=== PATIENT | male | born 1955 | race Caucasian/White ===

== ENCOUNTER 2020-08-07 03:02 | Outpatient (RCR) | payer MEDICARE, OTHER, SELFPAY ==
[2020-07-24] MEDS: Normal Saline Flush 10 ML SYR IVP (07:53)
[2020-07-24 08:11] LABS: Abs Immature Grans 0.01 10^3/uL (0.0-0.06); Absolute Basophil Count 0.07 10^3/uL (0.0-0.2); Absolute Eosinophil Count 0.19 10^3/uL (0.0-0.7); Absolute Lymphocyte Count 0.97 10^3/uL (1.2-3.4); Absolute Monocyte Count 0.37 10^3/uL (0.1-0.8); Absolute Neutrophil Count 2.86 10^3/uL (1.2-6.7); Basophils % 1.6; Eosinophils % 4.3; HCT 43.7 % (40.0-50.0); HGB 14.3 g/dL (13.5-17.5); Immature Grans % 0.2; Lymphocytes % 21.7; MCH 30.8 pg (27.0-33.0); MCHC 32.7 % (32.0-36.0); MCV 94.2 fL (80-95); MPV 9.3 fL (8.0-11.0); Monocytes % 8.3; Neutrophils % 63.9; Nucleated RBC 0 %; Platelet Count 181 10^3/uL (130-400); RBC 4.64 10^6/uL (4.36-5.78); RDW 12.2 % (11.8-14.1); RDW-SD 42.6 fL; WBC 4.47 10^3/uL (4.4-10.8)
[2020-07-24 08:27] LABS: ALT 17 U/L (16-63); AST 15 U/L (15-37); Albumin 3.7 g/dL (3.4-5.0); Alkaline Phosphatase 66 U/L (46-116); Anion Gap 7.2 mmol/L (3-11); BUN 10 mg/dL (7-18); Bilirubin, Total 0.3 mg/dL (0.2-1.0); CO2 30.8 mmol/L (21.0-32.0); CREATININE 1.4 mg/dL (0.70-1.30); Calcium 8.7 mg/dL (8.5-10.1); Chloride 102 mmol/L (98-107); Glucose 93 mg/dL (74-106); Potassium 3.7 mmol/L (3.5-5.1); Sodium 140 mmol/L (136-145); Total Protein 7.2 g/dL (6.4-8.2)
[2020-07-31] MEDS: Normal Saline Flush 10 ML SYR IVP (09:58)
[2020-07-31 10:01] LABS: Abs Immature Grans 0.03 10^3/uL (0.0-0.06); Absolute Basophil Count 0.07 10^3/uL (0.0-0.2); Absolute Eosinophil Count 0.13 10^3/uL (0.0-0.7); Absolute Lymphocyte Count 0.84 10^3/uL (1.2-3.4); Absolute Monocyte Count 0.41 10^3/uL (0.1-0.8); Absolute Neutrophil Count 4.19 10^3/uL (1.2-6.7); Basophils % 1.2; Eosinophils % 2.3; HGB 13.5 g/dL (13.5-17.5); Immature Grans % 0.5; Lymphocytes % 14.8; MCHC 32.9 % (32.0-36.0); MCV 94.3 fL (80-95); MPV 9.5 fL (8.0-11.0); Monocytes % 7.2; Nucleated RBC 0 %; Platelet Count 147 10^3/uL (130-400); RBC 4.35 10^6/uL (4.36-5.78); RDW 12.1 % (11.8-14.1); RDW-SD 42.3 fL; WBC 5.67 10^3/uL (4.4-10.8)
[2020-07-31 10:27] LABS: ALT 64 U/L (16-63); AST 28 U/L (15-37); Albumin 3.4 g/dL (3.4-5.0); Alkaline Phosphatase 58 U/L (46-116); Anion Gap 3.6 mmol/L (3-11); BUN 17 mg/dL (7-18); Bilirubin, Total 0.4 mg/dL (0.2-1.0); CO2 32.4 mmol/L (21.0-32.0); CREATININE 1.1 mg/dL (0.70-1.30); Calcium 8.5 mg/dL (8.5-10.1); Chloride 102 mmol/L (98-107); Glucose 133 mg/dL (74-106); Magnesium 1.8 mg/dL (1.8-2.4); Potassium 3.6 mmol/L (3.5-5.1); Sodium 138 mmol/L (136-145); Total Protein 6.9 g/dL (6.4-8.2)
[2020-08-07] MEDS: Normal Saline Flush 10 ML SYR IVP (08:56)
[2020-08-07 08:59] LABS: Abs Immature Grans 0.02 10^3/uL (0.0-0.06); Absolute Basophil Count 0.05 10^3/uL (0.0-0.2); Absolute Eosinophil Count 0.08 10^3/uL (0.0-0.7); Absolute Lymphocyte Count 0.57 10^3/uL (1.2-3.4); Absolute Monocyte Count 0.44 10^3/uL (0.1-0.8); Absolute Neutrophil Count 5.23 10^3/uL (1.2-6.7); Basophils % 0.8; Eosinophils % 1.3; HCT 39.6 % (40.0-50.0); HGB 13.2 g/dL (13.5-17.5); Immature Grans % 0.3; Lymphocytes % 8.9; MCHC 33.3 % (32.0-36.0); MPV 9.6 fL (8.0-11.0); Monocytes % 6.9; Neutrophils % 81.8; Nucleated RBC 0 %; Platelet Count 138 10^3/uL (130-400); RBC 4.26 10^6/uL (4.36-5.78); RDW 12.1 % (11.8-14.1); RDW-SD 41.5 fL; WBC 6.39 10^3/uL (4.4-10.8)
[2020-08-07 09:01] LABS: ALT 38 U/L (16-63); AST 16 U/L (15-37); Albumin 3.5 g/dL (3.4-5.0); Alkaline Phosphatase 61 U/L (46-116); Anion Gap 2.5 mmol/L (3-11); BUN 15 mg/dL (7-18); Bilirubin, Total 0.5 mg/dL (0.2-1.0); CO2 32.5 mmol/L (21.0-32.0); CREATININE 1.2 mg/dL (0.70-1.30); Calcium 8.7 mg/dL (8.5-10.1); Chloride 100 mmol/L (98-107); Glucose 132 mg/dL (74-106); Magnesium 1.8 mg/dL (1.8-2.4); Potassium 3.8 mmol/L (3.5-5.1); Sodium 135 mmol/L (136-145)
== END 2020-08-09 23:59 | disposition home or self-care (01) ==
LOC: INF 03:02
PROVIDERS: Visit Provider Internal Medicine Hematology & Oncology
DX: C02.9 Malignant neoplasm of tongue, unspecified (principal); Z45.2 Encounter for adjustment and management of vascular access device
CPT/HCPCS: 36415; 36591; 80053; 83735; 85025

== ENCOUNTER 2020-09-04 02:50 | Outpatient (RCR) | payer MEDICARE, OTHER, SELFPAY ==
[2020-08-14 08:46] LABS: Abs Immature Grans 0.01 10^3/uL (0.0-0.06); Absolute Basophil Count 0.04 10^3/uL (0.0-0.2); Absolute Eosinophil Count 0.08 10^3/uL (0.0-0.7); Absolute Lymphocyte Count 0.46 10^3/uL (1.2-3.4); Absolute Monocyte Count 0.47 10^3/uL (0.1-0.8); Absolute Neutrophil Count 5.37 10^3/uL (1.2-6.7); Basophils % 0.6; Eosinophils % 1.2; HGB 13.1 g/dL (13.5-17.5); Immature Grans % 0.2; Lymphocytes % 7.2; MCH 31.6 pg (27.0-33.0); MCHC 33.6 % (32.0-36.0); Monocytes % 7.3; Neutrophils % 83.5; Nucleated RBC 0 %; RBC 4.15 10^6/uL (4.36-5.78); RDW 12.4 % (11.8-14.1); RDW-SD 42.2 fL; WBC 6.43 10^3/uL (4.4-10.8)
[2020-08-14 08:56] LABS: ALT 142 U/L (16-63); AST 41 U/L (15-37); Albumin 3.7 g/dL (3.4-5.0); Alkaline Phosphatase 60 U/L (46-116); Anion Gap 6.9 mmol/L (3-11); BUN 14 mg/dL (7-18); Bilirubin, Total 0.7 mg/dL (0.2-1.0); CO2 30.1 mmol/L (21.0-32.0); CREATININE 1.1 mg/dL (0.70-1.30); Calcium 9.1 mg/dL (8.5-10.1); Chloride 99 mmol/L (98-107); Glucose 91 mg/dL (74-106); Magnesium 1.6 mg/dL (1.8-2.4); Potassium 4.4 mmol/L (3.5-5.1); Sodium 136 mmol/L (136-145); Total Protein 7.2 g/dL (6.4-8.2)
[2020-08-14 09:02] LABS: Diff Comment Diff Reviewed; Platelet Count 137 10^3/uL (130-400); RBC Morphology Normal
[2020-08-14] MEDS: Normal Saline Flush 10 ML SYR IVP (09:28)
[2020-08-21] MEDS: Normal Saline Flush 10 ML SYR IVP (09:38)
[2020-08-21 09:44] LABS: Abs Immature Grans 0.01 10^3/uL (0.0-0.06); Absolute Basophil Count 0.03 10^3/uL (0.0-0.2); Absolute Eosinophil Count 0.07 10^3/uL (0.0-0.7); Absolute Lymphocyte Count 0.39 10^3/uL (1.2-3.4); Absolute Monocyte Count 0.36 10^3/uL (0.1-0.8); Absolute Neutrophil Count 4.56 10^3/uL (1.2-6.7); Basophils % 0.6; Eosinophils % 1.3; HCT 36.2 % (40.0-50.0); HGB 11.9 g/dL (13.5-17.5); Immature Grans % 0.2; Lymphocytes % 7.2; MCH 31.2 pg (27.0-33.0); MCHC 32.9 % (32.0-36.0); MPV 10.1 fL (8.0-11.0); Monocytes % 6.6; Neutrophils % 84.1; Nucleated RBC 0 %; RBC 3.81 10^6/uL (4.36-5.78); RDW 12.4 % (11.8-14.1); RDW-SD 42.6 fL; WBC 5.42 10^3/uL (4.4-10.8)
[2020-08-21 09:54] LABS: Diff Comment Diff Reviewed; Platelet Count 99 10^3/uL (130-400); RBC Morphology Normal
[2020-08-21 09:55] LABS: ALT 157 U/L (16-63); AST 40 U/L (15-37); Albumin 3.5 g/dL (3.4-5.0); Alkaline Phosphatase 56 U/L (46-116); Anion Gap 5.1 mmol/L (3-11); BUN 27 mg/dL (7-18); Bilirubin, Total 0.4 mg/dL (0.2-1.0); CO2 31.9 mmol/L (21.0-32.0); CREATININE 1.2 mg/dL (0.70-1.30); Calcium 9.1 mg/dL (8.5-10.1); Chloride 102 mmol/L (98-107); Glucose 131 mg/dL (74-106); Magnesium 1.8 mg/dL (1.8-2.4); Potassium 4.9 mmol/L (3.5-5.1); Sodium 139 mmol/L (136-145); Total Protein 7.1 g/dL (6.4-8.2)
[2020-08-28 08:25] LABS: Abs Immature Grans 0.01 10^3/uL (0.0-0.06); Absolute Basophil Count 0.02 10^3/uL (0.0-0.2); Absolute Eosinophil Count 0.04 10^3/uL (0.0-0.7); Absolute Lymphocyte Count 0.34 10^3/uL (1.2-3.4); Absolute Monocyte Count 0.33 10^3/uL (0.1-0.8); Basophils % 0.7; Eosinophils % 1.3; HCT 33.8 % (40.0-50.0); HGB 11.4 g/dL (13.5-17.5); Immature Grans % 0.3; Lymphocytes % 11.2; MCH 31.8 pg (27.0-33.0); MCHC 33.7 % (32.0-36.0); MCV 94.4 fL (80-95); MPV 9.8 fL (8.0-11.0); Monocytes % 10.9; Neutrophils % 75.6; Nucleated RBC 0 %; Platelet Count 115 10^3/uL (130-400); RBC 3.58 10^6/uL (4.36-5.78); RDW 12.4 % (11.8-14.1); RDW-SD 42.5 fL; WBC 3.04 10^3/uL (4.4-10.8)
[2020-08-28] MEDS: Normal Saline Flush 10 ML SYR IVP (08:39)
[2020-08-28 08:47] LABS: ALT 196 U/L (16-63); AST 61 U/L (15-37); Albumin 3.5 g/dL (3.4-5.0); Alkaline Phosphatase 57 U/L (46-116); Anion Gap 7.7 mmol/L (3-11); BUN 23 mg/dL (7-18); Bilirubin, Total 0.6 mg/dL (0.2-1.0); CO2 28.3 mmol/L (21.0-32.0); CREATININE 1.1 mg/dL (0.70-1.30); Chloride 104 mmol/L (98-107); Glucose 87 mg/dL (74-106); Magnesium 1.5 mg/dL (1.8-2.4); Potassium 4.8 mmol/L (3.5-5.1); Sodium 140 mmol/L (136-145)
[2020-09-04] MEDS: Normal Saline Flush 10 ML SYR IVP (08:56)
[2020-09-04 09:05] LABS: Abs Immature Grans 0.04 10^3/uL (0.0-0.06); Absolute Basophil Count 0.03 10^3/uL (0.0-0.2); Absolute Eosinophil Count 0.03 10^3/uL (0.0-0.7); Absolute Lymphocyte Count 0.34 10^3/uL (1.2-3.4); Absolute Monocyte Count 0.54 10^3/uL (0.1-0.8); Absolute Neutrophil Count 2.26 10^3/uL (1.2-6.7); Basophils % 0.9; Eosinophils % 0.9; Immature Grans % 1.2; Lymphocytes % 10.5; MCH 31.6 pg (27.0-33.0); MCHC 33.3 % (32.0-36.0); MCV 94.8 fL (80-95); MPV 10.1 fL (8.0-11.0); Monocytes % 16.7; Neutrophils % 69.8; Nucleated RBC 0 %; Platelet Count 159 10^3/uL (130-400); RBC 3.48 10^6/uL (4.36-5.78); RDW-SD 43.2 fL; WBC 3.24 10^3/uL (4.4-10.8)
[2020-09-04 09:20] LABS: ALT 200 U/L (16-63); AST 50 U/L (15-37); Albumin 3.5 g/dL (3.4-5.0); Alkaline Phosphatase 57 U/L (46-116); Anion Gap 7.3 mmol/L (3-11); BUN 22 mg/dL (7-18); Bilirubin, Total 0.4 mg/dL (0.2-1.0); CO2 29.7 mmol/L (21.0-32.0); Calcium 9.1 mg/dL (8.5-10.1); Chloride 106 mmol/L (98-107); Glucose 92 mg/dL (74-106); Magnesium 1.5 mg/dL (1.8-2.4); Potassium 4.8 mmol/L (3.5-5.1); Sodium 143 mmol/L (136-145); Total Protein 7.1 g/dL (6.4-8.2)
== END 2020-09-08 23:59 | disposition home or self-care (01) ==
LOC: INF 02:50
PROVIDERS: Visit Provider Internal Medicine Hematology & Oncology
DX: C02.9 Malignant neoplasm of tongue, unspecified (principal); Z45.2 Encounter for adjustment and management of vascular access device
CPT/HCPCS: 36591; 80053; 83735; 85025

== ENCOUNTER 2020-09-25 02:41 | Outpatient (RCR) | payer MEDICARE, OTHER, SELFPAY ==
[2020-09-25] MEDS: Normal Saline Flush 10 ML SYR IVP (10:41)
[2020-09-25 10:48] LABS: Abs Immature Grans 0.04 10^3/uL (0.0-0.06); Absolute Basophil Count 0.02 10^3/uL (0.0-0.2); Absolute Eosinophil Count 0.07 10^3/uL (0.0-0.7); Absolute Lymphocyte Count 0.39 10^3/uL (1.2-3.4); Absolute Monocyte Count 0.69 10^3/uL (0.1-0.8); Absolute Neutrophil Count 2.85 10^3/uL (1.2-6.7); Basophils % 0.5; Eosinophils % 1.7; HGB 10.2 g/dL (13.5-17.5); Lymphocytes % 9.6; MCHC 32.9 % (32.0-36.0); MCV 97.2 fL (80-95); MPV 10.2 fL (8.0-11.0); Neutrophils % 70.2; Nucleated RBC 0 %; Platelet Count 142 10^3/uL (130-400); RBC 3.19 10^6/uL (4.36-5.78); RDW 15.8 % (11.8-14.1); WBC 4.06 10^3/uL (4.4-10.8)
[2020-09-25 11:08] LABS: ALT 74 U/L (16-63); AST 33 U/L (15-37); Albumin 3.5 g/dL (3.4-5.0); Alkaline Phosphatase 60 U/L (46-116); Anion Gap 4.7 mmol/L (3-11); BUN 21 mg/dL (7-18); Bilirubin, Total 0.4 mg/dL (0.2-1.0); CO2 31.3 mmol/L (21.0-32.0); CREATININE 1.1 mg/dL (0.70-1.30); Calcium 9.2 mg/dL (8.5-10.1); Chloride 105 mmol/L (98-107); Glucose 101 mg/dL (74-106); Magnesium 1.7 mg/dL (1.8-2.4); Potassium 4.2 mmol/L (3.5-5.1); Sodium 141 mmol/L (136-145); Total Protein 6.8 g/dL (6.4-8.2)
== END 2020-10-09 23:59 | disposition home or self-care (01) ==
LOC: INF 02:41
PROVIDERS: Visit Provider Internal Medicine Hematology & Oncology
DX: C01 Malignant neoplasm of base of tongue (principal); E86.0 Dehydration; E83.42 Hypomagnesemia; Z45.2 Encounter for adjustment and management of vascular access device
CPT/HCPCS: 36591; 80053; 83735; 85025

== ENCOUNTER 2020-12-11 07:37 | Outpatient (CLI) | payer MEDICARE, OTHER, SELFPAY | END 2020-12-11 07:38 | disposition home or self-care (01) | LOC: LBO 08:41 | PROVIDERS: Visit Provider Internal Medicine Hematology & Oncology | DX: C01 Malignant neoplasm of base of tongue (principal); Z79.899 Other long term (current) drug therapy | CPT/HCPCS: 80053; 83735; 84443; 85025 ==

== ENCOUNTER 2020-12-11 11:54 | Outpatient (RCR) | payer MEDICARE, OTHER, SELFPAY ==
[2020-12-11] MEDS: Heparin 500 UNITS/5 ML SYRINGE (12:12)
[2020-12-11] MEDS: Normal Saline Flush 10 ML SYR IVP (12:12)
[2020-12-11 12:28] LABS: Abs Immature Grans 0.01 10^3/uL (0.0-0.06); Absolute Basophil Count 0.04 10^3/uL (0.0-0.2); Absolute Eosinophil Count 0.15 10^3/uL (0.0-0.7); Absolute Lymphocyte Count 0.64 10^3/uL (1.2-3.4); Absolute Monocyte Count 0.36 10^3/uL (0.1-0.8); Basophils % 0.9; Eosinophils % 3.4; HGB 11.3 g/dL (13.5-17.5); Immature Grans % 0.2; Lymphocytes % 14.5; MCH 33.6 pg (27.0-33.0); MCHC 33.2 % (32.0-36.0); MCV 101.2 fL (80-95); MPV 9.9 fL (8.0-11.0); Monocytes % 8.2; Neutrophils % 72.8; Nucleated RBC 0 %; Platelet Count 137 10^3/uL (130-400); RBC 3.36 10^6/uL (4.36-5.78); RDW 11.7 % (11.8-14.1); RDW-SD 43.4 fL
[2020-12-11 13:10] LABS: ALT 25 U/L (16-63); AST 19 U/L (15-37); Albumin 3.5 g/dL (3.4-5.0); Alkaline Phosphatase 56 U/L (46-116); Anion Gap 6.9 mmol/L (3-11); BUN 10 mg/dL (7-18); Bilirubin, Total 0.4 mg/dL (0.2-1.0); CO2 30.1 mmol/L (21.0-32.0); CREATININE 1.1 mg/dL (0.70-1.30); Chloride 107 mmol/L (98-107); Glucose 101 mg/dL (74-106); Magnesium 1.7 mg/dL (1.8-2.4); Potassium 3.7 mmol/L (3.5-5.1); Sodium 144 mmol/L (136-145); TSH 1.16 uIU/mL (0.36-3.74); Total Protein 6.9 g/dL (6.4-8.2)
== END 2021-01-09 23:59 | disposition home or self-care (01) ==
LOC: INF 11:54
PROVIDERS: Visit Provider Internal Medicine Hematology & Oncology
DX: C01 Malignant neoplasm of base of tongue (principal); Z79.899 Other long term (current) drug therapy; Z45.2 Encounter for adjustment and management of vascular access device
CPT/HCPCS: 36591; 80053; 83735; 84443; 85025

== ENCOUNTER 2021-01-18 10:00 | Outpatient (CLI) | payer MEDICARE, OTHER, SELFPAY ==
[2021-01-18 14:20] LABS: Abs Immature Grans 0.01 10^3/uL (0.0-0.06); Absolute Basophil Count 0.05 10^3/uL (0.0-0.2); Absolute Eosinophil Count 0.15 10^3/uL (0.0-0.7); Absolute Lymphocyte Count 0.68 10^3/uL (1.2-3.4); Absolute Monocyte Count 0.41 10^3/uL (0.1-0.8); Absolute Neutrophil Count 5.12 10^3/uL (1.2-6.7); Basophils % 0.8; Eosinophils % 2.3; HCT 38.9 % (40.0-50.0); HGB 12.8 g/dL (13.5-17.5); Immature Grans % 0.2; Lymphocytes % 10.6; MCH 31.8 pg (27.0-33.0); MCHC 32.9 % (32.0-36.0); MCV 96.8 fL (80-95); MPV 9.8 fL (8.0-11.0); Monocytes % 6.4; Neutrophils % 79.7; Nucleated RBC 0 %; Platelet Count 142 10^3/uL (130-400); RBC 4.02 10^6/uL (4.36-5.78); RDW 11.9 % (11.8-14.1); RDW-SD 42.3 fL; WBC 6.42 10^3/uL (4.4-10.8)
[2021-01-18 14:26] LABS: Magnesium 1.8 mg/dL (1.8-2.4)
[2021-01-18 14:39] LABS: ALT 14 U/L (16-63); AST 14 U/L (15-37); Albumin 3.6 g/dL (3.4-5.0); Alkaline Phosphatase 66 U/L (46-116); BUN 11 mg/dL (7-18); Bilirubin, Total 0.5 mg/dL (0.2-1.0); CREATININE 1.4 mg/dL (0.70-1.30); Calcium 9.4 mg/dL (8.5-10.1); Chloride 105 mmol/L (98-107); Estimated GFR 50.55 (mL/min/1.73m2); Glucose 115 mg/dL (74-106); Sodium 144 mmol/L (136-145); TSH 2.15 uIU/mL (0.36-3.74); Total Protein 7.3 g/dL (6.4-8.2)
[2021-01-18 14:48] LABS: Potassium 2.9 mmol/L (3.5-5.1)
== END 2021-01-18 10:01 | disposition home or self-care (01) ==
LOC: LBO 10:01
PROVIDERS: PCP Family Medicine; Visit Provider Internal Medicine Hematology & Oncology
DX: C01 Malignant neoplasm of base of tongue (principal); Z79.899 Other long term (current) drug therapy
CPT/HCPCS: 36415; 80053; 83735; 84443; 85025

== ENCOUNTER 2021-01-18 15:50 | Emergency (ER) | payer MEDICARE, OTHER, SELFPAY ==
[2021-01-18] VITALS (25 sets, daily range): BP systolic 110–139; BP diastolic 66–83; PULSE 64–88; RESP 11–17; TEMP 36.3–36.6; O2SAT 94–99
--- NOTE | 2021-01-18 16:21 | ED.GENADUL_ITS ---
Discharge Plan Disposition Patient Disposition: HOME Condition: Stable Discharge Details Clinical Impression: Dehydration, Acute hypokalemia Primary Care Provider: Anupam Valdes ED Provider: Delia Maddox Home Meds and New Rx's Prescriptions: Continued clotrimazole 10 mg Acosta 10 mg PO DIRECTED RF: 0 ibuprofen 200 mg Tablet 400 mg PO PRN PRNRF: 0 omeprazole 40 mg Capsule,Delayed Release(Dr/Ec) 40 mg PO QAM RF: 0 therapeutic multivitamin Tablet 1 tab PO QAM RF: 0 prochlorperazine maleate 10 mg Tablet 10 mg PO PRN PRNRF: 0 amitriptyline 10 mg Tablet 10 mg PO HS RF: 0 tamsulosin 0.4 mg Capsule 0.4 mg PO HS RF: 0 duloxetine 20 mg Capsule,Delayed Release(Dr/Ec) 20 mg PO QAM RF: 0 levocetirizine 5 mg Tablet 5 mg PO QAM RF: 0 loperamide 2 mg Tablet 2 mg PO PRN PRNRF: 0 acetaminophen 325 mg Tablet 650 mg PO PRN PRNRF: 0 gabapentin 800 mg Tablet 800 mg PO BID RF: 0 fluticasone propion-salmeterol [Advair Diskus] 100-50 mcg/dose Blister With Device 1 inh INHALATION PRN PRNRF: 0 albuterol sulfate 90 mcg/actuation Aerosol Powdr Breath Activated 2 inh INHALATION PRN PRNRF: 0 albuterol sulfate [Proventil HFA] 90 mcg/actuation Hfa Aerosol Inhaler 2 inh INHALATION PRN PRNRF: 0 ibuprofen 200 mg Tablet 200 mg PO PRN PRNRF: 0 Discharge Instructions Instructions: Dehydration (ED), Hypokalemia (ED) Additional Instructions: Labs are WNL, potassium level was slightly low however kidney functions are within normal limits. Use Magic mouthwash as directed approximately 10 to 20 minutes before eating or drinking. Follow up with primary care provider in 3-5 days. Return to ED sooner if any worsening or concerns. Increase oral fluids. Please take Tylenol or Ibuprofen with food every 4-6 hours as needed for pain and swelling. Referrals: Anupam Valdes [Primary Care Provider] - Medical Decision Making 65 year old male presents to ED with chief complaint of weight loss, mouth pain and decreased PO intake x 1 month. 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 Patient had labs drawn today and was nted to have a potassium level of 2.9 and Elevated creatanine of 1.4 and GFR of 50. Patient is currently taking Nystatin for thrush type symptoms. Denies fever, chills, abdominal pain, N/V/D or problems urinating. labs re-drawn, UA, Saline ordered and Liquid potassium PO and IV 10 meq. At this time I suspect elevated creatanin due to dehydration. Will give magic mouthwash as well. CBC shows no evidence of leukocytosis hemoglobin hematocrit at baseline, sodium is 145 potassium 3.1, BUN 12 creatinine 1.2 GFR greater than 60 magnesium slightly low at 1.7. Discussed lab results with patient and family verbalized understanding. I did discuss home care and follow-up with PCP. At this time patient is stable to be discharged home. Patient has received approximately 500 cc normal saline. This text was generated using [employer] system, please disregard any oddities of phrase or misspellings. HPI General Date/Time Provider Initiated Documentation: 01/18/21 16:08 . Limitations to Documentation: no limitations . Information obtained by: patient, family and RN notes reviewed . HPI Narrative: 65 year old male presents to ED with chief complaint of weight loss, mouth pain and decreased PO intake x 1 month. 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 Patient had labs drawn today and was nted to have a potassium level of 2.9 and Elevated creatanine of 1.4 and GFR of 50. Patient is currently taking Nystatin for thrush type symptoms. Denies fever, chills, abdominal pain, N/V/D or problems urinating. Related Data Home Medications Medication Instructions Recorded Confirmed acetaminophen 650 mg PO PRN PRN 01/18/21 01/18/21 albuterol sulfate 2 inh INHALATION PRN PRN 01/18/21 01/18/21 albuterol sulfate [Proventil HFA] 2 inh INHALATION PRN PRN 01/18/21 01/18/21 amitriptyline 10 mg PO HS 01/18/21 01/18/21 clotrimazole 10 mg PO DIRECTED 01/18/21 01/18/21 duloxetine 20 mg PO QAM 01/18/21 01/18/21 fluticasone propion-salmeterol 1 inh INHALATION PRN PRN 01/18/21 01/18/21 [Advair Diskus] gabapentin 800 mg PO BID 01/18/21 01/18/21 ibuprofen 200 mg PO PRN PRN 01/18/21 01/18/21 ibuprofen 400 mg PO PRN PRN 01/18/21 01/18/21 levocetirizine 5 mg PO QAM 01/18/21 01/18/21 loperamide 2 mg PO PRN PRN 01/18/21 01/18/21 omeprazole 40 mg PO QAM 01/18/21 01/18/21 prochlorperazine maleate 10 mg PO PRN PRN 01/18/21 01/18/21 tamsulosin 0.4 mg PO HS 01/18/21 01/18/21 therapeutic multivitamin 1 tab PO QAM 01/18/21 01/18/21 Allergies Allergy/AdvReac Type Severity Reaction Status Date / Time mold Allergy Unverified 01/18/21 16:08 shellfish derived Allergy Unverified 01/18/21 16:07 birch trees, beech trees Allergy Uncoded 01/18/21 16:07 ragweed Allergy Uncoded 01/18/21 16:07 General Stated Complaint: GenMedical SUHAS: 3 Review of Systems All systems reviewed & are unremarkable except as noted in HPI and below PFSH Social History Smoking/Tobacco Use Status: Never Smoking risk assessment performed?: Yes Alcohol Intake: former Substance use type: does not use Exam HENMT Head: normal to inspection General nose exam: external nose normal Face and sinus: normal facial exam Mouth: tongue abnormal with white coating Course Vital Signs Vital signs: Vital Signs Temperature 36.3 C L 01/18/21 15:57 Pulse 85 01/18/21 15:57 Respiratory Rate 15 01/18/21 15:57 Blood Pressure 130/70 01/18/21 15:57 Pulse Oximetry 96 01/18/21 15:57 Temperature 36.3 C L 01/18/21 15:57 Temperature Source Skin 01/18/21 15:57 Pulse 85 01/18/21 15:57 Respiratory Rate 15 01/18/21 15:57 Respiratory Effort Non-Labored 01/18/21 15:57 Blood Pressure 130/70 01/18/21 15:57 Blood Pressure Position Supine 01/18/21 15:57 Pulse Oximetry 96 01/18/21 15:57 Oxygen Delivery Method Room Air 01/18/21 15:57 Oxygen Flow Rate 0 01/18/21 15:57 Pain Level 5 01/18/21 15:57
[2021-01-18] MEDS: Normal Saline-STERILE FIELD 0.9% 10 ML SYR (16:46)
[2021-01-18] MEDS: Potassium Chloride Liquid 20 MEQ PKT 40 MEQ PO (16:46)
[2021-01-18] MEDS: Magic Mouthwash 119 ML BTL 10 ML PO (16:47)
[2021-01-18] MEDS: Normal Saline 1,000 ML 350 ML IV (16:56)
[2021-01-18] MEDS: POTASSIUM CHLORIDE 10 MEQ/100 ML BAG 100 MEQ IVPB (17:01)
[2021-01-18 17:21] LABS: Abs Immature Grans 0.02 10^3/uL (0.0-0.06); Absolute Basophil Count 0.05 10^3/uL (0.0-0.2); Absolute Eosinophil Count 0.13 10^3/uL (0.0-0.7); Absolute Lymphocyte Count 0.67 10^3/uL (1.2-3.4); Absolute Monocyte Count 0.44 10^3/uL (0.1-0.8); Absolute Neutrophil Count 4.66 10^3/uL (1.2-6.7); Basophils % 0.8; Eosinophils % 2.2; HCT 36.7 % (40.0-50.0); HGB 12.2 g/dL (13.5-17.5); Immature Grans % 0.3; Lymphocytes % 11.2; MCH 31.7 pg (27.0-33.0); MCHC 33.2 % (32.0-36.0); MCV 95.3 fL (80-95); MPV 10.2 fL (8.0-11.0); Monocytes % 7.4; Neutrophils % 78.1; Nucleated RBC 0 %; Platelet Count 149 10^3/uL (130-400); RBC 3.85 10^6/uL (4.36-5.78); RDW 11.9 % (11.8-14.1); RDW-SD 41.8 fL; WBC 5.97 10^3/uL (4.4-10.8)
[2021-01-18 17:26] LABS: Magnesium 1.7 mg/dL (1.8-2.4)
[2021-01-18 17:32] LABS: ALT 14 U/L (16-63); AST 17 U/L (15-37); Albumin 3.5 g/dL (3.4-5.0); Alkaline Phosphatase 63 U/L (46-116); Anion Gap 6.2 mmol/L (3-11); BUN 12 mg/dL (7-18); Bilirubin, Total 0.5 mg/dL (0.2-1.0); CO2 32.8 mmol/L (21.0-32.0); CREATININE 1.2 mg/dL (0.70-1.30); Calcium 9.3 mg/dL (8.5-10.1); Chloride 106 mmol/L (98-107); Glucose 84 mg/dL (74-106); Potassium 3.1 mmol/L (3.5-5.1); Sodium 145 mmol/L (136-145); Total Protein 6.9 g/dL (6.4-8.2)
[2021-01-18] MEDS: Heparin 500 UNITS/5 ML SYRINGE (18:47)
== END 2021-01-18 18:57 | disposition home or self-care (01) ==
PROVIDERS: Emergency Provider Registered Nurse Emergency; PCP Family Medicine
DX: E86.0 Dehydration (principal); E87.6 Hypokalemia
CPT/HCPCS: 36415; 80053; 96361; 96365; 99284; 83735; 84443; 85025; J3480

== ENCOUNTER 2021-02-05 18:15 | Outpatient (REF) | payer MEDICARE, OTHER, SELFPAY ==
[2021-02-13 08:08] LABS: Fungus Smear No Fungi Seen
== END 2021-02-05 18:16 | disposition home or self-care (01) ==
LOC: LBN 18:15
PROVIDERS: PCP Family Medicine; Visit Provider Internal Medicine Hematology & Oncology
DX: C01 Malignant neoplasm of base of tongue (principal); J02.9 Acute pharyngitis, unspecified
CPT/HCPCS: 87102; 87206